=== PATIENT | female | born 1950 | race Caucasian/White ===

== ENCOUNTER 2024-03-19 15:51 | Outpatient (AMB) | payer MEDICARE, OTHER, SELFPAY ==
--- NOTE | 2024-03-19 15:54 | A.OFFPC_ITS ---
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 Intake Note: pt is here for new patient appointment, requesting physical exam Quality Assurance Associate Required: No Accompanied by: Self / Same As Patient Allergies acetaminophen [From Percocet] Allergy (Mild, Verified 03/19/24 16:55) Anxiety lisinopril Allergy (Mild, Verified 03/19/24 16:55) Muscle cramps oxycodone [From Percocet] Allergy (Mild, Verified 03/19/24 16:55) Anxiety Medication List - Last Reconciled 03/19/24 by EMMA Crawford aspirin (Adult Aspirin Regimen) 81 mg PO DAILY blood sugar diagnostic (FreeStyle Lite Strips) As directed metformin 500 mg PO DAILY simvastatin 20 mg PO BEDTIME valsartan 80 mg PO DAILY Tobacco use date assessed: 03/19/24 Fall risk assessment: No Falls in past year Last assessed Fall Risk: 03/19/24 Dental Screening Dental Screen Date: 03/19/24 Did you have a dental visit in the last 12 months?: Yes Did you have a dental problem in the last 6 months where you did not have access to dental care?: No Was dental information given to patient?: Patient has dentist HPI 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 Will order labs. Mammo is up to date according to pt. Colon screen is up to date according to pt (due next year, mother with colon ca). Pt is a diabetic, on an ARB and a statin. A1C in office today is 6.4. Due for microalbumin, will order. Denies polyuria, polydipsia, and neuropathy. reports her eye exam is up to date and bone density. Pt denies any signs and symptoms of hypoglycemia and does know how to correct it. [facility] Surgical History Hx of inguinal hernia repair H/O wrist surgery H/O shoulder surgery Hx of section Family History Father High blood pressure Skin cancer Mother Colon cancer Other Substance abuse Social History Housing: House Alcohol intake: never Patient Tobacco Use Status: Never used Tobacco e-Cigarette/Vaping Use: Never Used Second Hand Smoke Exposure: No service: No Current occupational status: retired Current occupational exposures/hazards: No Cognitive needs: No Hearing needs: No Vision needs: Yes Questionnaire PHQ-9 Over the last 2 weeks, how often have you been bothered by any of the following problems? 1. Little interest or pleasure in doing things: not at all 2. Feeling down, depressed, or hopeless: not at all 3. Trouble falling or staying asleep, or sleeping too much: not at all 4. Feeling tired or having little energy: not at all 5. Poor appetite or overeating: not at all 6. Feeling bad about yourself - or that you are a failure or have let yourself or your family down: not at all 7. Trouble concentrating on things, such as reading the newspaper or watching television: not at all 8. Moving or speaking so slowly that other people could have noticed. Or the opposite - being so fidgety or restless that you have been moving around a lot more than usual: not at all 9. Thoughts that you would be better off or of hurting yourself in some way: not at all Total score: 0 Depression Screening Interpretation: Negative Depression Screening Done: Yes 75737 - PHQ-9 Billing: Yes Source: Developed by Drs. Tyron Hurst, Bailee Pugh, Ron Lal and colleagues, with an educational kumar from [employer]. Thrive Questionnaire Date Thrive assessed: 03/19/24 I am a: Patient What is your living situation today?: I have a steady place to live Within the past 12 months, did the food you bought not last and you didn't have the money to get more?: Never true Within the past 12 months, did you worry whether your food would run out before you got money to buy more?: Never true Do you have trouble paying for medicines?: No Do you have trouble getting transportation to medical appointments?: No Do you have trouble paying your heating and electricity bill?: No Do you have trouble taking care of your child, family member or friend?: No Do you have trouble with day-to-day activities such as bathing, preparing meals, shopping, managing finances, etc.?: No Are you currently unemployed and looking for a job?: No Are you interested in more education?: No Please select the resources that you would like help with: None Currently or been in a relationship where the following occur: I choose not to answer THRIVE Score: 0 AUDIT C Alcohol Use Questionnaire (AUDIT-C) 1. How often do you have a drink containing alcohol?: Never 3. How often do you have six or more drinks on one occasion?: Never Total Score: 0 Score Reviewed/Action Taken: Yes KVNG-7 AMB Questionnaire KVNG-7 Date KVNG - 7 assessed: 03/19/24 Feeling nervous, anxious, or on edge: 0 = Not at all Not being able to stop or control worryin = Not at all Worrying too much about different things: 0 = Not at all Trouble relaxin = Not at all Being so restless that it is hard to sit still: 0 = Not at all Becoming easily annoyed or irritable: 0 = Not at all Feeling afraid as if something awful might happen: 0 = Not at all Total KVNG-7 score (0-4 normal; 5-9 mild; 10-14 moderate; 15-21 severe): 0 Source: Developed by Drs. Tyron Hurst, Bailee Pugh, Ron Lal and colleagues, with an educational kumar from [employer]. KVNG-7 Assessment Billing KVNG-7 Assessment Tool: KVNG-7 Assessment 54011 Review of Systems Const Denies chills and Denies fever(s) Eyes Denies blurry vision ENT Denies vertigo, Denies dizziness and Denies sore throat Card Denies chest pain at rest, Denies chest pain with activity, Denies diaphoresis, Denies dyspnea and Denies dyspnea on exertion Resp Denies cough, Denies dyspnea, Denies dyspnea on exertion and Denies wheezing GI Denies abdominal pain, Denies melena, Denies hematochezia, Denies constipation, Denies diarrhea and Denies loose stools Denies hematuria Musc Denies numbness and Denies tingling Skin/Breast Denies lesions Neuro Denies vertigo, Denies dizziness, Denies numbness and Denies tingling Psych Denies anxiety, Denies depression, Denies homicidal ideation, Denies suicidal ideation and Denies other (substance abuse) Aller/Immun Denies wheezing Physical exam (Primary Care) Vital Signs: Last Vital Signs Pulse 73 03/19/24 16:11 BP 130/78 03/19/24 16:11 Pulse Ox 97 03/19/24 16:11 Oxygen Delivery Method Room Air 03/19/24 16:11 BMI result Body Mass Index 34.2 Tobacco/Smoking Status: Tobacco use Status Tobacco use date assessed 03/19/24 03/19/24 15:59 Patient Tobacco Use Status Never used Tobacco 03/19/24 16:18 e-Cigarette/Vaping Use Never Used 03/19/24 16:18 PHQ-9: PHQ-9 Score PHQ-9: Total score 0 03/19/24 15:59 Depression Screening Interpretation: Negative Thrive Assessment: Date of Thrive Assessment Date Thrive assessed 03/19/24 03/19/24 15:59 Currently or been in a relationship where the following occur: I choose not to answer Const General: cooperative Nutritional Appearance: well nourished Orientation/consciousness: patient oriented x3 HENMT Head: Yes normal to inspection, Yes normocephalic and Yes atraumatic Ears: TM's normal bilaterally Eyes General: appearance normal, both eyes and all related structures Alignment and Position: alignment normal and position normal Neck Neck: Yes normal visual inspection and Yes no lymphadenopathy Thyroid: Thyroid normal Resp Effort & Inspection: normal respiratory effort Auscultation: clear to auscultation bilaterally Cardio Rate: regular rate Rhythm: regular rhythm Heart sounds: S1 normal heart sound present, S2 normal heart sound present and no murmurs GI Palpation (GI): Soft to palpation and nontender Auscultation: normal bowel sounds Skin Rashes: no rashes Neuro General: patient oriented x3, moves all extremities, no focal motor deficits and deep tendon reflexes 2+ bilaterally Romberg Test: Negative Extrem Other: bilat feet: + sensation with use of monofilament, feet intact, bilat bunions (left>right) Psych Appearance: grossly normal Mental Status: mental status grossly normal Speech and movement: Normal speech and movement present Affect: normal affect Attitude: cooperative Thought process: Normal thought process present Thought content: Normal thought content present Insight: Good insight present (Psych) Judgement: Good judgement present (Psych) Assessment and Plan Assessment & Plan (1) Diabetes: Code(s): E11.9 - Type 2 diabetes mellitus without complications Plan: controlled currently (2) Post-menopausal: Code(s): Z78.0 - Asymptomatic menopausal state Plan: bone density up to date (according to pt), will check a vitamin d Plan The patient agreed to the use of a medical equipment repair technician for this encounter. Scribed for FERNANDA Croft-DURAN by Charleen Negrete medical equipment repair technician, on 03/19/2024 at 16:35 EST. Orders: Orders Comprehensive [place]. Panel Fast Today E11.9 - Type 2 diabetes mellitus without complications Complete Blood Count Auto Diff Today E11.9 - Type 2 diabetes mellitus without complications TSH reflex Free T4 Today E11.9 - Type 2 diabetes mellitus without complications UA CC w/rflx Micro + Cult Today E11.9 - Type 2 diabetes mellitus without complications Lipid Panel Today E11.9 - Type 2 diabetes mellitus without complications Microalbumin, Random (w Creat) Today E11.9 - Type 2 diabetes mellitus without complications Vitamin D 25-OH Total Today Z78.0 - Asymptomatic menopausal state Coding Level of Care Code New Pt Prev Care >65yr (69655) Diagnoses Diabetes E11.9 Post-menopausal Z78.0 Additional Codes KVNG-7 Assessment Billing - KVNG-7 Assessment Tool: KVNG-7 Assessment 31385 ([id number])
[2024-03-19 16:11] VITALS: BP 130/78; PULSE 73; O2SAT 97; BMI 34.2
== END 2024-03-19 17:04 | disposition home or self-care (01) ==
PROVIDERS: PCP Nurse Practitioner Family; Visit Provider Nurse Practitioner Family
DX: E11.9 Type 2 diabetes mellitus without complications (principal); Z78.0 Asymptomatic menopausal state
CPT/HCPCS: 99214